=== PATIENT | male | born 1980 | race Caucasian/White ===

== ENCOUNTER 2019-09-12 20:21 | Emergency (ER) | payer MEDICAID, SELFPAY | END 2019-09-12 22:31 | disposition admitted as inpatient to this hospital (09) | LOC: ER 09-15 13:40 | PROVIDERS: Emergency Provider Emergency Medicine | DX: R45.851 Suicidal ideations (principal); Z87.891 Personal history of nicotine dependence | CPT/HCPCS: 12345; 36415; 80053; 80306; 80307; 85025; 99284; 99285 ==

== ENCOUNTER 2019-09-12 20:21 | Inpatient (IN) | payer MEDICAID, SELFPAY ==
[2019-09-12 20:28] VITALS: BP 127/77; PULSE 88; RESP 16; TEMP 36.7; O2SAT 97; BMI 27.1
--- NOTE | 2019-09-12 20:34 | ED_ITS ---
HPI - Psych General: Chief Complaint: Psychiatric Symptoms Stated Complaint: si, hallucinations Time Seen by Provider: 09/12/19 20:29 Source: patient Mode of arrival: ambulatory Limitations: no limitations History of Present Illness: HPI Narrative: 38-year-old male who states he has had suicidal ideations over the last day. He states he is also had auditory hallucinations for 3 days. He states he used to be on Prozac Abilify and has not been taken. He states he has a plan to cut his wrist to kill himself. Patient is here wanting to get help. complaint: suicidal ideation Onset (ago): day(s) Duration: constant Relieving factors: none Exacerbating factors: none Associated symptoms: Reports auditory hallucinations, depression and suicidal ideation Review of Systems Const: Denies: fever, chills, body aches or change in appetite Eyes: Denies: blurry vision or eye discomfort ENMT: Denies: throat pain or dental pain Card: Denies: chest pain Resp: Denies: shortness of breath GI: Denies: abdominal pain, nausea, vomiting or diarrhea : Denies: painful urination Musc: Denies: neck pain or back pain Skin/Breast: Denies: rash Neuro: Denies: headache Psych: Reports: depression, auditory hallucinations and suicidal ideation Magdiel/Lymph: Denies: easy bruising All/Imm: Denies: hives PFSH ED PFSH: Social History Smoking and tobacco status: former smoker Physical Exam Const: COMMON NORMALS: no apparent distress, oriented x3 and healthy appearing HENMT: COMMON NORMALS: normocephalic and head/scalp atraumatic HEAD & SCALP: normocephalic and atraumatic Eye: COMMON NORMALS: PERRL and EOMs intact bilaterally PUPIL: Yes PERRL Neck/C-Spine: COMMON NORMALS: full ROM and supple Chest: COMMONS NORMALS: inspection of chest normal and palpation of chest normal Resp: COMMON NORMALS: normal respiratory effort, no retractions, no use of accessory muscles and clear to auscultation bilaterally AUSCULTATION: clear to auscultation bilaterally Cardio: COMMON NORMALS: regular rate, regular rhythm and no murmurs RATE: regular rate RHYTHM: regular rhythm GI: COMMON NORMALS: normal to inspection, nondistended, normoactive bowel sounds, soft to palpation, non-tender and no masses PALPATION: Yes soft Extremity: COMMON NORMALS: normal to inspection and full ROM Neuro: COMMON NORMALS: oriented x3, moves all extremities and no focal motor deficits Psych: COMMON NORMALS: mental status grossly normal, thought process normal and cooperative ATTITUDE: Yes paranoid THOUGHT PROCESS: normal thought process THOUGHT CONTENT: Yes suicidality Skin: COMMON NORMALS: no rashes or lesions noted and no wounds GENERAL SKIN EXAM: no rashes or lesions noted MDM - Psych MDM Narrative: Medical decision making narrative: Patient presents here with suicidal ideation along with auditory hallucinations. I spoke to Dr. Melgoza and patient is medically cleared will admit to the psychiatric unit. Patient has been stable while here. Lab Data: Labs: Lab Results 09/12/19 09/12/19 09/12/19 Range/Units 20:50 20:58 20:58 WBC 6.5 (4.0-10.0) 10^3/ uL RBC 4.05 L (4.1-5.3) 10^6/u L Hgb 13.2 (11.7-16.6) g/dL Hct 38.6 L (42.0-52.0) % MCV 95.3 H (80-94) fL MCH 32.6 (28.0-34.0) pg MCHC 34.2 (30.0-36.0) g/dL RDW 12.3 (12.1-15.1) % Plt Count 273 (130-400) 10^3/c mm MPV 9.6 (7.4-10.4) fL Neut % (Auto) 36.5 % Lymph % (Auto) 41.7 % [place] % (Auto) 10.5 % Eos % (Auto) 10.3 % Baso % (Auto) 0.8 % Neut # (Auto) 2.4 (1.8-7.7) 10^3/u L Lymph # (Auto) 2.7 (0.8-4.8) 10^3/u L [place] # (Auto) 0.7 (0.2-0.9) 10^3/u L Eos # (Auto) 0.7 (0.0-0.8) 10^3/u L Baso # (Auto) 0.1 (0.0-0.1) 10^3/u L Nucleated RBC % (a uto) 0 % Nucleated RBCs # 0.0 /100WBC Sodium 141 (136-145) mmol/L Potassium 4.3 (3.5-5.1) mmol/L Chloride 104 (98-107) mmol/L Carbon Dioxide 25 (22-29) mmol/L Anion Gap 16.3 (5-19) BUN 15 (6-20) mg/dL Creatinine 0.9 (0.7-1.2) mg/dL GFR Calculation 94.4 (90-130) mL/min Glucose 116 H (65-115) mg/dL Calculated Osmolal ity 289 (285-295) mOsm/k g Calcium 9.7 (8.5-10.5) mg/dL Total Bilirubin 0.2 (0.15-1.2) mg/dL AST 24 (0-40) U/L ALT 30 (0-41) U/L Alkaline Phosphata se 74 (40-130) IU/L Total Protein 7.2 (6.6-8.7) g/dL Albumin 4.1 (3.5-5.2) g/dL Globulin 3.1 (1.3-4.6) g/dL Salicylates < 0.3 L (3-10) mg/dL Urine Opiates Scre en Negative (Negative) ng/mL Acetaminophen < 5.0 L (10-30) ug/mL Ur Barbiturates Sc reen Negative (Negative) ng/mL Ur Phencyclidine S crn Negative (Negative) ng/mL Ur Amphetamines Sc reen Negative (Negative) ng/mL U Benzodiazepines Scrn Negative (Negative) ng/mL Urine Cocaine Scre en Negative (Negative) ng/mL U Marijuana (THC) Screen Negative (Negative) ng/mL Ethyl Alcohol < 10 (0-10) mg/dL Discharge Plan Discharge Patient Disposition: Admitted As Inpatient Clinical Impression: Suicidal ideation, Hallucinations Condition: Stable Coding Level of Care Code ED Clinical Social Work Therapist for Luz Maria Fwcandi Exam Comprehensive
[2019-09-12 21:08] LABS: Basophils # 0.1 10^3/uL (0.0-0.1); Basophils % 0.8 %; Eosinophils # 0.7 10^3/uL (0.0-0.8); Eosinophils % 10.3 %; Hematocrit 38.6 % (42.0-52.0); Hemoglobin 13.2 g/dL (11.7-16.6); Lymphocytes # 2.7 10^3/uL (0.8-4.8); Lymphocytes % 41.7 %; Mean Corpuscular HGB Conc 34.2 g/dL (30.0-36.0); Mean Corpuscular Hemoglobin 32.6 pg (28.0-34.0); Mean Corpuscular Volume 95.3 fL (80-94); Mean Platelet Volume 9.6 fL (7.4-10.4); Monocytes # 0.7 10^3/uL (0.2-0.9); Monocytes % 10.5 %; Neutrophils # 2.4 10^3/uL (1.8-7.7); Neutrophils % 36.5 %; Nucleated Red Blood Cells % 0 %; Platelet Count 273 10^3/cmm (130-400); Red Blood Count 4.05 10^6/uL (4.1-5.3); Red Cell Distribution Width 12.3 % (12.1-15.1); White Blood Count 6.5 10^3/uL (4.0-10.0)
[2019-09-12 21:18] LABS: Amphetamines Screen Urine Negative (Negative); Barbiturates Screen Urine Negative (Negative); Benzodiazepines Screen Urine Negative (Negative); Cocaine Screen Urine Negative (Negative); Opiate Screen Urine Negative (Negative); PCP Screen Urine Negative (Negative); THC Screen Urine Negative (Negative)
[2019-09-12 21:20] LABS: Alanine Aminotransferase 30 U/L (0-41); Albumin Level 4.1 g/dL (3.5-5.2); Alkaline Phosphatase 74 IU/L (40-130); Anion Gap 16.3 (5-19); Aspartate Amino Transferase 24 U/L (0-40); Blood Urea Nitrogen 15 mg/dL (6-20); Calcium 9.7 mg/dL (8.5-10.5); Carbon Dioxide 25 mmol/L (22-29); Chloride 104 mmol/L (98-107); Creatinine Clr Calc Pharmacy 130.4076; Globulin 3.1 g/dL (1.3-4.6); Glomerular Filtration Rate 94.4 mL/min (90-130); Glucose 116 mg/dL (65-115); Osmolality Calculated 289 mOsm/kg (285-295); Potassium 4.3 mmol/L (3.5-5.1); Sodium 141 mmol/L (136-145); Total Bilirubin 0.2 mg/dL (0.15-1.2); Total Protein 7.2 g/dL (6.6-8.7)
[2019-09-12 21:28] LABS: Acetaminophen < 5.0 ug/mL (10-30); Alcohol Level < 10 mg/dL (0-10); Salicylate < 0.3 mg/dL (3-10)
[2019-09-12 21:37] VITALS: BP 105/67; PULSE 76; RESP 16; O2SAT 95
[2019-09-12 22:15] VITALS: BP 132/69; PULSE 69; RESP 16; O2SAT 96
[2019-09-12 22:46] VITALS: BP 104/66; PULSE 75; RESP 18; TEMP 36.4; O2SAT 98
[2019-09-13 06:00] VITALS: BP 115/72; PULSE 70; RESP 17; TEMP 36.7; O2SAT 95
[2019-09-13 14:00] VITALS: BP 112/65; PULSE 73; RESP 20; TEMP 36.8; O2SAT 95
[2019-09-13] MEDS: paliperidone ER 3 mg Tablet PO (15:56)
--- NOTE | 2019-09-13 16:04 | P.HP_ITS ---
Providers/Chief Complaint Admitting Physician: Genaro Melgoza MD Chief Complaint: si, hallucinations HPI NPU History of Present Illness Chief complaint: I am having problems with hallucinations. I did really well when I was on medication. I want to be on the shot. History of present illness:Darin Zhang is a 38 year old male who presented to the emergency room requesting admission so that he could be restarted on medications that had previously been effective. 2 months ago, he went into a residential program that was [facility] and was told that he could stop his pharmaceuticals and rely solely on the strength of his face. He now states that the medications are necessary and effective. He had been taking Abilify and Prozac. However, he reports that he was on inVega for 3 months last year and the inVega seem to help better than the combination of those 2 medications as. He reports that historically, his diagnosis was schizoaffective disorder?bipolar type. He is not a very good historian regarding progression of those symptoms over time. He has been hospitalized over 40 times with the first being at 12 years of age. However he is very clear that he wants to be on injectable medic ation because he cannot remember to take his pills. He is also very clear that the in Choi was the most effective medication in reducing his auditory hallucinations. He acknowledges that risperidone is on his allergy list and says that with both risperidone and Haldol he had dystonia. However he is adamant that he never had a similar side effect with the Invega. Currently he is having auditory hallucinations but they are not of a command nature. They impaired his ability to think clearly and reduce his focus of attention. He denies suicidal or homicidal ideation. He reports no other symptoms and has no other requests. Laboratory Tests 09/12/19 09/12/19 20:50 20:58 Urine Opiates Screen Negative Ur Barbiturates Screen Negative Ur Phencyclidine Scrn Negative Ur Amphetamines Screen Negative U Benzodiazepines Scrn Negative Urine Cocaine Screen Negative U Marijuana (THC) Screen Negative Ethyl Alcohol < 10 ER physician note:HPI Narrative: 38-year-old male who states he has had suicidal ideations over the last day. He states he is also had auditory hallucinations for 3 days. He states he used to be on Prozac Abilify and has not been taken. He states he has a plan to cut his wrist to kill himself. Patient is here wanting to get help. Mental health history: Social history: The patient grew up in [place]. He currently has a fianc? in [place]. However she is not able to come and get him here in the surgery. He dropped out of school in the 10th grade. However he did get his GED. He is originally from [facility]. 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 His father currently lives in [place]. He has 2 brothers in [place]. He has never been and has no children. Legal history: He is currently on parole for resisting arrest, assaulting an officer, felonious restraint, possession of a controlled substance, and resisting/interfering with arrest for a felony. These all occurred during one incident in August 2015. He received a 4-year sentence in the [employer]. It is unclear how long he served. Past medical history: Allergies: Risperidone and haloperidol both cause dystonic reactions by patient report. These are not confirmed. Medications: None Medical: The patient has no chronic medical problems. However in the week prior to admission, he did have a deep puncture wound from a rusted barbed wire fence. There are no signs of infection. However he cannot remember his last tetanus shot. Meds NPU Home Medications Medication Instructions Recorded Confirmed Last Taken Type No Known Home Medications 09/12/19 09/12/19 Unknown History Allergies Allergy/AdvReac Type Severity Reaction Status Date / Time haloperidol [From Haldol] Allergy ADR-Seizure Verified 09/12/19 20:34 risperidone [From Risperdal] Allergy ADR-Seizure Verified 09/12/19 20:35 [facility] NPU PFS: Social History Smoking and tobacco status: former smoker Mental Status Exam MSE Comments: Mental Status Exam: The patient is an alert interpersonally engaged male appearing approximately his stated age. Appearance: hygiene is fair; no gross neurological deficits., gait is unremarkable; AIMS=0; he has good muscle tone and mass and appears athletic. Speech: Speech is of normal rate and rhythm and easily understood. Vocabulary is less than expected for age. Thought processes: Thought processes are abstract. Judgment is adequate for safety. Associations: intact Psychotic processes: There is no indication of guarding or paranoia. There is no attention to the internal stimuli. Auditory hallucinations are reported. They are not of a command nature. However they impair his ability to think clearly. visual hallucinations are denied. Judgment: Insight is fair. Problem solving skills are adequate for safety. Orientation: The patient is oriented to person, place time and situation. Memory: no deficits noted in immediate, intermediate, or remote spheres. Attention: The patient is alert and interpersonally engaged. Language: Verbalizations are coherent. Fund of knowledge: Fund of knowledge is poor Affect/Mood: Affect is consistent with a euthymic mood. He denied suicidal ideation Affective range flat Psychosis: perception unimpaired except through cognitive distortion and cognitive deficit; reality testing intact. Diagnoses: Schizoaffective disorder?acute, psychotic Assessment: Treatment plan: Due to the psychiatric conditions and treatment listed in the Assessment and Plan - the patient requires continued hospitalization. Will provide a safe and therapeutic environment for patient.. Will continue inpatient treatment to allow for medication adjustment and monitoring. Will continue q15 min safety checks. Patient is in agreement that restarting in Choi. He is adamant that it is well- tolerated. We are going to initiate in Choi 3 mg today and give him a tetanus shot. We will likely initiate IM in Choi tomorrow morning. Monitor patient's mood, sleep, appetite, and behavior closely. Encourage patient to participate in individual and group therapeutic sessions on the perkins. Estimated length of stay 5 days Vitals/I&O/Wt Last Vital Signs Temp 98.2 F 09/13/19 14:00 Pulse 73 09/13/19 14:00 Resp 20 H 09/13/19 14:00 BP 112/65 09/13/19 14:00 Pulse Ox 95 09/13/19 14:00 Weight last 48 hrs Weight 90.718 kg Data NPU : 09/12/19 20:58 09/12/19 20:58 A&P Additional A&P Information Diagnoses: Schizoaffective disorder?acute, psychotic Assessment: Treatment plan: Due to the psychiatric conditions and treatment listed in the Assessment and Plan - the patient requires continued hospitalization. Will provide a safe and therapeutic environment for patient.. Will continue inpatient treatment to allow for medication adjustment and monitoring. Will continue q15 min safety checks. Patient is in agreement that restarting in Choi. He is adamant that it is well- tolerated. We are going to initiate in Choi 3 mg today and give him a tetanus shot. We will likely initiate IM in Choi tomorrow morning. Monitor patient's mood, sleep, appetite, and behavior closely. Encourage patient to participate in individual and group therapeutic sessions on the perkins. Estimated length of stay 5 days Involuntary Hold Information 96 Hour Hold: 96 Hour Involuntary Admission: Yes 96 Hour Hold Ending Date: 09/17/19 96 Hour Hold Ending Time: 12:01 Attestations NPU Medical Necessity Statement*: Patient will remain in the hospital another 4-5 nights to assess medication efficacy and tolerability. Coding Level of Care Code Acute Barrel Rifler Hook for Luz Maria Castillo
--- NOTE | 2019-09-13 20:58 | PC.NURSE ---
pt offered med for sleep, but pt denied.
[2019-09-13 22:00] VITALS: BP 130/78; PULSE 75; RESP 18; TEMP 36.9; O2SAT 97
[2019-09-14 06:00] VITALS: BP 106/67; PULSE 68; RESP 16; TEMP 37; O2SAT 96
[2019-09-14] MEDS: paliperidone ER 3 mg Tablet PO (08:59)
[2019-09-14] MEDS: paliperidone palmitate 234 mg Syringe IM (12:01)
[2019-09-14 14:00] VITALS: BP 103/64; PULSE 71; RESP 18; TEMP 36.7; O2SAT 95
[2019-09-14] MEDS: tetanus-diphtheria tox (adult) 0.5 mL SDV IM (17:18)
[2019-09-14 22:00] VITALS: BP 109/73; PULSE 84; RESP 17; TEMP 36.9; O2SAT 94
[2019-09-15 05:57] VITALS: BP 120/82; PULSE 69; RESP 17; TEMP 36.7; O2SAT 98
[2019-09-15] MEDS: paliperidone ER 3 mg Tablet PO (08:56)
--- NOTE | 2019-09-15 09:26 | PM.NPN ---
Subjective NPU Subjective: Interval history: Patient reports that he has tolerated his oral Invega and is not having any problems with side effects. There is no stiffness or cogwheel rigidity. Mental Status Exam MSE Comments: Mental Status Exam: The patient is an alert interpersonally engaged male appearing approximately his stated age. Appearance: hygiene is acceptable; no gross neurological deficits., gait is unremarkable; AIMS=0; he has good muscle tone and mass and appears athletic. No cogwheel rigidity Speech: Speech is of normal rate and rhythm and easily understood. Vocabulary is less than expected for age. Thought processes: Thought processes are abstract. Judgment is adequate for safety. Associations: intact Psychotic processes: There is no indication of guarding or paranoia. There is no attention to the internal stimuli. Auditory hallucinations are reported. They are not of a command nature. However they impair his ability to think clearly. visual hallucinations are denied. Judgment: Insight is fair. Problem solving skills are adequate for safety. Orientation: The patient is oriented to person, place time and situation. Memory: no deficits noted in immediate, intermediate, or remote spheres. Attention: The patient is alert and interpersonally engaged. Language: Verbalizations are coherent. Fund of knowledge: Fund of knowledge is poor Affect/Mood: Affect is consistent with a euthymic mood. He denied suicidal ideation Affective range flat Psychosis: perception unimpaired except through cognitive distortion and cognitive deficit; reality testing intact. Vitals/I&O/Wt Last Vital Signs Temp 98.1 F 09/15/19 05:57 Pulse 69 09/15/19 05:57 Resp 17 09/15/19 05:57 BP 120/82 09/15/19 05:57 Pulse Ox 98 09/15/19 05:57 Data NPU : 09/12/19 20:58 09/12/19 20:58 A&P Additional A&P Information Diagnoses: Schizoaffective disorder?acute, psychotic Assessment: Treatment plan: Due to the psychiatric conditions and treatment listed in the Assessment and Plan - the patient requires continued hospitalization. Will provide a safe and therapeutic environment for patient.. Will continue inpatient treatment to allow for medication adjustment and monitoring. Will continue q15 min safety checks. Patient is in agreement that restarting inVega. He is adamant that it is well-tolerated. We are going to initiate in Choi 3 mg today and give him a tetanus shot. We will likely initiate IM inVega tomorrow morning. Hospital day #2: Invega initiated and well-tolerated. Plan: Invega Sustenna 234 milligrams IM today Monitor patient's mood, sleep, appetite, and behavior closely. Encourage patient to participate in individual and group therapeutic sessions on the perkins. Estimated length of stay 2 days Involuntary Hold Information 96 Hour Hold: 96 Hour Involuntary Admission: Yes 96 Hour Hold Ending Date: 09/17/19 96 Hour Hold Ending Time: 12:01 Attestations NPU Medical Necessity Statement*: Patient to remain in the hospital 1 more day to assess efficacy and tolerability of medication. Coding Level of Care Code Acute Press Technician for Luz Maria Castillo
--- NOTE | 2019-09-15 09:29 | P.DS_ITS ---
Diagnoses at Discharge Discharge Diagnosis (1) Schizophrenia, acute undifferentiated: Status: Acute Problem details: Patient continues to struggle with auditory hallucinations though there is no command nature to the hallucinations and his reality testing remains intact. Reason for Visit Reason for Visit: Reason For Visit: si, hallucinations Brief History: Chief complaint: I am having problems with hallucinations. I did really well when I was on medication. I want to be on the shot. History of present illness:Darin Zhang is a 38 year old male who presented to the emergency room requesting admission so that he could be restarted on medications that had previously been effective. 2 months ago, he went into a residential program that was [facility] and was told that he could stop his pharmaceuticals and rely solely on the strength of his face. He now states that the medications are necessary and effective. He had been taking Abilify and Prozac. However, he reports that he was on inVega for 3 months last year and the inVega seem to help better than the combination of those 2 medications as. He reports that historically, his diagnosis was schizoaffective disorder?bipolar type. He is not a very good historian regarding progression of those symptoms over time. He has been hospitalized over 40 times with the first being at 12 years of age. However he is very clear that he wants to be on injectable medication because he cannot remember to take his pills. He is also very clear that the in Choi was the most effective medication in reducing his auditory hallucinations. He acknowledges that risperidone is on his allergy list and says that with both risperidone and Haldol he had dystonia. However he is adamant that he never had a similar side effect with the Invega. Currently he is having auditory hallucinations but they are not of a command nature. They impaired his ability to think clearly and reduce his focus of attention. He denies suicidal or homicidal ideation. He reports no other symptoms and has no other requests. Hospital Course Discharge Summary The patient was admitted to the adult psychiatric unit and entered into the form of individual and group therapies as part of the unit protocol. They were provided 24-hour access to medication supervision and therapeutic activities by trained psychiatric nursing. The patient was educated with regard to potential benefits and side effects of new medications. We agreed to a contingency plan of discontinuation of medication in the event of intolerable side effects. He was provided an initial dose of in Choi to assess his tolerability of the medication. He adamantly stated that he has taken this medication in the past without side effects. He was given his first injection of Invega Sustenna. It was well-tolerated. Discharge planning found that that the most acceptable destination was to return to the treatment program from which he came. Involuntary Hold Information 96 Hour Hold: 96 Hour Involuntary Admission: Yes 96 Hour Hold Ending Date: 09/17/19 96 Hour Hold Ending Time: 12:01 Mental Status Exam MSE Comments: Discharge Mental Status Exam: Appearance: hygiene is good; no gross neurological deficits., gait is unremarkable; AIMS=0 Speech: Speech is of normal rate and rhythm and easily understood. Thought processes: Thought processes are abstract. Judgment is adequate for safety. Associations: intact Psychotic processes: There is no indication of guarding or paranoia. There is no attention to the internal stimuli. visual hallucinations are denied. Auditory hallucinations continue to be present but in reduced severity. There is no command nature and his reality testing is intact. Judgment: Insight is fair. Problem solving skills are adequate for safety. Orientation: The patient is oriented to person, place time and situation. Memory: no deficits noted in immediate, intermediate, or remote spheres. Attention: The patient is alert and interpersonally engaged. Language: Verbalizations are coherent. Fund of knowledge: Fund of knowledge is poor but adequate. Affect/Mood: Affect is consistent with a euthymic mood. denied suicidal ideation Affective range is reduced. Psychosis: perception unimpaired except through cognitive distortion; reality testing intact. NOTE!!! I am unable to find someplace in the discharge plan section to explain the discharge actions by narrative. The patient was discharged with a prescription for Invega Sustenna 156 mg IM. He is to receive his next injection in 7 days and then every 30 days +/- 3 days going forward. He was given a written prescription for this. Discharge Data Vitals: Last Vital Signs Temp 98.1 F 09/15/19 05:57 Pulse 69 09/15/19 05:57 Resp 17 09/15/19 05:57 BP 120/82 09/15/19 05:57 Pulse Ox 98 09/15/19 05:57 Discharge Plan Discharge Patient Disposition: Home, Self-Care Condition: Stable Prescriptions: New paliperidone 3 mg Tablet Extended Release 24hr 3 mg PO DAILY Qty: 10 RF: 1 Discharge Orders: Discharge Order (Routine); Ordered 09/15/19 Ordered By: Yoel Loja Referrals: [facility] [Other] - 09/21/19 9:30 am (you need to have your medicine picked up before this appointment at [facility] and bring it to the primary care appointment to get it administered. You will still need to go to [facility] in order to get future psychiatric medication management. Be sure to get your injection on September 20 and then again 30 days later. ) [facility] [Other] - 1-3 days (you still need to go to [facility] ([facility])as so on as possible in order to get referral for psychiatric medication management. This is where you will go for your psychiatric care after you get established. You will be able to get appointments for injectable here in the future. If for some reason you are unable to get injectable next FridaySeptember 20 at the [facility], you do have the option to bring your medicine with you to [facility] ([facility]) provider for walk- in clinic. Ask for staff to administer it then. ) Discharge Diet: Usual diet Discharge Activity: Increase activity as tolerated Patient Instructions: Paliperidone (By mouth), Paliperidone (Injection) Discharge Attestations NPU Time Spent in Discharge Care*: greater than 30 min Coding Level of Care Code Acute Manager Revenue for Luz Maria Castillo Diagnoses Schizophrenia, acute undifferentiated F20.3
[2019-09-15 09:32] VITALS: BP 120/82; PULSE 69; RESP 17; TEMP 36.7; O2SAT 98
== END 2019-09-15 13:44 | disposition home or self-care (01) | DRG 885 ==
LOC: ER 20:43 → NP 22:16
PROVIDERS: Emergency Medicine; Admitting Provider Psychiatry & Neurology Psychiatry; Visit Provider Psychiatry & Neurology Psychiatry
DX: F23 Brief psychotic disorder (principal); R45.851 Suicidal ideations; Z87.891 Personal history of nicotine dependence
CPT/HCPCS: 12345; 36415; 80053; 80306; 80307; 85025; 90471; 90714; 96372; 99284

== ENCOUNTER → 2019-09-16 10:08 | Outpatient (BNVA) | payer MEDICAID, SELFPAY | PROVIDERS: Visit Provider Counselor Professional | DX: F25.0 Schizoaffective disorder, bipolar type (principal) | CPT/HCPCS: 90791 ==

== ENCOUNTER → 2019-10-21 14:00 | Outpatient (BNVA) | payer MEDICAID, SELFPAY | PROVIDERS: Visit Provider Counselor Professional | DX: F25.0 Schizoaffective disorder, bipolar type (principal) | CPT/HCPCS: 90832 ==

== ENCOUNTER 2019-10-22 13:52 | Emergency (ER) | payer MEDICAID, SELFPAY ==
[2019-10-22 14:12] VITALS: BP 110/68; PULSE 113; RESP 18; TEMP 36.6; O2SAT 97; BMI 29.1
== END 2019-10-22 15:46 | disposition left against medical advice (07) ==
LOC: ER 15:30
PROVIDERS: Emergency Provider Family Medicine
DX: Z53.21 Procedure and treatment not carried out due to patient leaving prior to being seen by health care provider (principal)
CPT/HCPCS: 99281

== ENCOUNTER 2019-10-24 09:09 | Inpatient (IN) | payer MEDICAID, SELFPAY ==
[2019-10-24 09:12] VITALS: BP 120/76; PULSE 91; RESP 18; TEMP 36.8; O2SAT 98; BMI 29.1
--- NOTE | 2019-10-24 09:22 | ECG_ITS ---
[facility] ED Test Date: 2019-10-24 Pat Name: Darin Zhang Department: Room: Gender: Male Guard Supervisor: : 1980 Requested By: Messi Steinberg Order Number: [id number] [place] MD: Janet Shah M.D. Measurements Intervals [place] Rate: 74 P: 56 VT: 148 QRS: 60 QRSD: 121 T: 29 QT: 400 QTc: 445 Interpretive Statements SINUS RHYTHM PROBABLE LATERAL MYOCARDIAL INFARCTION, PROBABLY OLD WARNING: DATA QUALITY MAY AFFECT INTERPRETATION INTERPRETATION BASED ON A DEFAULT AGE OF 40 YEARS No previous ECG available for comparison Electronically Signed On 10-24-2019 13:34:07 CDT by Janet Shah M.D. [email or web address]
--- NOTE | 2019-10-24 09:30 | W.ED.PSYCH ---
HPI - Psych General: Chief Complaint: Psychiatric Symptoms Stated Complaint: SI Time Seen by Provider: 10/24/19 09:12 History of Present Illness: HPI Narrative: Patient states that he began feeling suicidal yesterday. She does not know the reason why. Patient states he has schizoaffective disorder and it is been at least one month since his last Invega injection. complaint: suicidal ideation and feels depressed Onset (ago): day(s) Duration: constant and getting worse History of same: Yes Relieving factors: none Exacerbating factors: none Context: not taking psychiatric medications Associated psychiatric symptoms: depression and suicidal ideation Associated symptoms: Reports depression and suicidal ideation Treatments prior to arrival: none If self harm: admits thoughts of self harm Review of Systems General: Reports: 10 or more systems reviewed and unremarkable except in HPI and below Psych: Reports: depression and suicidal ideation PFSH ED PFSH: Social History Smoking and tobacco status: current every day smoker Current gender identity: Male Physical Exam Const: COMMON NORMALS: no acute distress, average body habitus, alert and well nourished EXAM LIMITATIONS: altered mental status GENERAL APPEARANCE: disheveled HENMT: COMMON NORMALS: normocephalic, atraumatic, hearing grossly normal bilaterally, external ears normal, EAC's normal, TM's normal bilaterally, Normal external nose present, Normal nasal mucous membranes and turbinates present, moist oral mucous membranes, oropharynx normal, dentition normal and gingiva normal HEAD & SCALP: normocephalic and atraumatic NOSE: Normal external nose present and Normal nasal mucous membranes and turbinates present EXTERNAL EAR: Yes external ears normal EXTERNAL AUDITORY CANAL: EAC's normal TYMPANIC MEMBRANE: TM's normal bilaterally Eye: COMMON NORMALS: Equal, round and reactive pupils present, EOMs intact bilaterally, conjunctivae normal, no scleral icterus, no papilledema, normal visual tadeo by confrontation and fundi normal bilaterally CONJUNCTIVA: Yes conjunctivae normal PUPIL: Yes Equal, round and reactive pupils present DIRECT OPHTHALMOSCOPY: Yes no papilledema and Yes fundi normal bilaterally Neck/C-Spine: COMMON NORMALS: full ROM, no lymphadenopathy, supple, no meningeal signs, no JVD, Thyroid normal and No carotid bruits THYROID: Thyroid normal Chest: COMMONS NORMALS: normal inspection of the chest and normal palpation of entire chest wall Resp: COMMON NORMALS: normal respiratory effort, No retractions, No use of accessory muscles, clear to auscultation bilaterally and percussion normal AUSCULTATION: clear to auscultation bilaterally PERCUSSION: percussion normal Cardio: COMMON NORMALS: no JVD, regular rate, regular rhythm, S1 normal heart sound present, S2 normal heart sound present, No gallops present (Cardio), No clicks present (Cardio), No murmurs present (Cardio), No rub (Cardio) and Peripheral pulses 2+ throughout RATE: regular rate RHYTHM: regular rhythm HEART SOUNDS: S1 normal heart sound present and S2 normal heart sound present PERIPHERAL PULSES: Peripheral pulses 2+ throughout GI: COMMON NORMALS: Normal to inspection, nondistended, normoactive bowel sounds present, Soft to palpation, non-tender, No hepatosplenomegaly present, no masses and no bruits PALPATION: Yes Soft to palpation and Yes No hepatosplenomegaly present Back/Pelvis: COMMON NORMALS: thoracic and lumbar spine normal to inspection, no thoracic nor lumbar tenderness, thoraco-lumbar ROM normal and straight leg raise negative bilaterally Extremity: COMMON NORMALS: normal to inspection, full ROM, capillary refill normal, no joint enlargement, no clubbing, cyanosis or edema, no calf tenderness and no pedal edema Neuro: SENSORIUM/ORIENTATION: Yes alert and Yes somnolent MENINGEAL SIGNS: Yes no meningeal signs Skin: COMMON NORMALS: no rashes or lesions noted, no wounds, no jaundice and no mottling GENERAL SKIN EXAM: no rashes or lesions noted MDM - Psych Lab Data: Labs: Lab Results 10/24/19 10/24/19 10/24/19 Range/Units 09:29 09:35 09:35 WBC 8.5 (4.0-10.0) 10^3/ uL RBC 4.23 (4.1-5.3) 10^6/u L Hgb 13.3 (11.7-16.6) g/dL Hct 40.1 L (42.0-52.0) % MCV 94.8 H (80-94) fL MCH 31.4 (28.0-34.0) pg MCHC 33.2 (30.0-36.0) g/dL RDW 11.8 L (12.1-15.1) % Plt Count 291 (130-400) 10^3/c mm MPV 9.9 (7.4-10.4) fL Neut % (Auto) 62.8 % Lymph % (Auto) 21.9 % [place] % (Auto) 8.9 % Eos % (Auto) 5.2 % Baso % (Auto) 0.8 % Neut # (Auto) 5.3 (1.8-7.7) 10^3/u L Lymph # (Auto) 1.9 (0.8-4.8) 10^3/u L [place] # (Auto) 0.8 (0.2-0.9) 10^3/u L Eos # (Auto) 0.4 (0.0-0.8) 10^3/u L Baso # (Auto) 0.1 (0.0-0.1) 10^3/u L Nucleated RBC % (a uto) 0 % Nucleated RBCs # 0.0 /100WBC Sodium 140 (136-145) mmol/L Potassium 4.0 (3.5-5.1) mmol/L Chloride 103 (98-107) mmol/L Carbon Dioxide 26 (22-29) mmol/L Anion Gap 15.0 (5-19) BUN 10 (6-20) mg/dL Creatinine 0.7 (0.7-1.2) mg/dL GFR Calculation 125.5 (90-130) mL/min Glucose 108 (65-115) mg/dL Calculated Osmolal ity 287 (285-295) mOsm/k g Calcium 9.1 (8.5-10.5) mg/dL Total Bilirubin 0.2 (0.15-1.2) mg/dL AST 19 (0-40) U/L ALT 24 (0-41) U/L Alkaline Phosphata se 70 (40-130) IU/L Total Protein 6.7 (6.6-8.7) g/dL Albumin 4.1 (3.5-5.2) g/dL Globulin 2.6 (1.3-4.6) g/dL TSH 1.30 (0.27-4.20) uIU/ mL Salicylates < 0.3 L (3-10) mg/dL Urine Opiates Scre en Negative (Negative) ng/mL Acetaminophen < 5.0 L (10-30) ug/mL Ur Barbiturates Sc reen Negative (Negative) ng/mL Ur Phencyclidine S crn Negative (Negative) ng/mL Ur Amphetamines Sc reen Positive H (Negative) ng/mL U Benzodiazepines Scrn Negative (Negative) ng/mL Urine Cocaine Scre en Negative (Negative) ng/mL U Marijuana (THC) Screen Positive H (Negative) ng/mL Ethyl Alcohol < 10 (0-10) mg/dL Discharge Plan Discharge Patient Disposition: Admitted As Inpatient Clinical Impression: Suicidal ideation Depression Qualifiers: Depression Type: major depressive disorder Major depression recurrence: recurrent Active/Remission status: currently active Major depression episode severity: severe Psychotic features: with psychotic features Qualified Code(s): F33.3 - Major depressive disorder, recurrent, severe with psychotic symptoms Schizoaffective disorder Qualifiers: Schizoaffective disorder type: unspecified Qualified Code(s): F25.9 - Schizoaffective disorder, unspecified Condition: Fair Coding Level of Care Code ED Resident Programs Assistant for [facility] Exam Comprehensive
[2019-10-24 09:46] LABS: Basophils # 0.1 10^3/uL (0.0-0.1); Basophils % 0.8 %; Eosinophils # 0.4 10^3/uL (0.0-0.8); Eosinophils % 5.2 %; Hematocrit 40.1 % (42.0-52.0); Hemoglobin 13.3 g/dL (11.7-16.6); Lymphocytes # 1.9 10^3/uL (0.8-4.8); Lymphocytes % 21.9 %; Mean Corpuscular HGB Conc 33.2 g/dL (30.0-36.0); Mean Corpuscular Hemoglobin 31.4 pg (28.0-34.0); Mean Corpuscular Volume 94.8 fL (80-94); Mean Platelet Volume 9.9 fL (7.4-10.4); Monocytes # 0.8 10^3/uL (0.2-0.9); Monocytes % 8.9 %; Neutrophils # 5.3 10^3/uL (1.8-7.7); Neutrophils % 62.8 %; Nucleated Red Blood Cells % 0 %; Platelet Count 291 10^3/cmm (130-400); Red Blood Count 4.23 10^6/uL (4.1-5.3); Red Cell Distribution Width 11.8 % (12.1-15.1); White Blood Count 8.5 10^3/uL (4.0-10.0)
[2019-10-24 09:51] LABS: Amphetamines Screen Urine Positive (Negative); Barbiturates Screen Urine Negative (Negative); Benzodiazepines Screen Urine Negative (Negative); Cocaine Screen Urine Negative (Negative); Opiate Screen Urine Negative (Negative); PCP Screen Urine Negative (Negative); THC Screen Urine Positive (Negative)
[2019-10-24 10:10] LABS: Alanine Aminotransferase 24 U/L (0-41); Albumin Level 4.1 g/dL (3.5-5.2); Alkaline Phosphatase 70 IU/L (40-130); Aspartate Amino Transferase 19 U/L (0-40); Blood Urea Nitrogen 10 mg/dL (6-20); Calcium 9.1 mg/dL (8.5-10.5); Carbon Dioxide 26 mmol/L (22-29); Chloride 103 mmol/L (98-107); Globulin 2.6 g/dL (1.3-4.6); Glomerular Filtration Rate 125.5 mL/min (90-130); Glucose 108 mg/dL (65-115); Osmolality Calculated 287 mOsm/kg (285-295); Sodium 140 mmol/L (136-145); Total Bilirubin 0.2 mg/dL (0.15-1.2); Total Protein 6.7 g/dL (6.6-8.7)
[2019-10-24 10:21] LABS: Acetaminophen < 5.0 ug/mL (10-30); Alcohol Level < 10 mg/dL (0-10); Salicylate < 0.3 mg/dL (3-10)
[2019-10-24 11:51] VITALS: BP 130/77; PULSE 84; RESP 18; TEMP 36.7; O2SAT 99
[2019-10-24 12:15] VITALS: BP 113/66; PULSE 84; O2SAT 99
[2019-10-24 22:00] VITALS: BP 109/64; PULSE 78; RESP 14; TEMP 36.9; O2SAT 97
--- NOTE | 2019-10-24 23:03 | PC.NURSE ---
Pt was offered PRN meds for sleep and anxiety, but refused.
[2019-10-25 06:00] VITALS: BP 111/74; PULSE 74; RESP 15; TEMP 36.8; O2SAT 96
--- NOTE | 2019-10-25 08:55 | PM.NHP ---
Providers/Chief Complaint Admitting Physician: Genaro Melgoza MD Chief Complaint: SI HPI NPU History of Present Illness Darin Zhang is a 39 year old male who presents today reporting that he was doing really well after his discharge approximately five weeks ago. He has a long history of inpatient hospitalizations and had been admitted, got placed on his medication, including Invega Sustenna injection. Unfortunately, he missed his appointment earlier this month that would have gotten him his next injection, so he did not get the injection. He was at a CDL school and doing quite well, but each day with the absence of the medication in his system, he started acting more strangely which led to them inquiring about whether he had mental health issues, and he had to reveal that he missed his injection. They recommended he come here and now he is focused on the possibility of whether or not he will get to go back, as long as he gets his injection managed. We reviewed the note from his last admission, and he verified that there have been no substantive changes and it represents his history appropriately. An excerpt of that has been included below. We agreed to give him his injection and then work with him along with the social work team to see what options are available of getting him back into school, as that was going to be a wonderful opportunity for him if he can complete it. Per his 09/13/2019 [facility] eval: Chief complaint: I am having problems with hallucinations. I did really well when I was on medication. I want to be on the shot. History of present illness:Darin Zhang is a 38 year old male who presented to the emergency room requesting admission so that he could be restarted on medications that had previously been effective. 2 months ago, he went into a residential program that was [facility]-based and was told that he could stop his pharmaceuticals and rely solely on the strength of his face. He now states that the medications are necessary and effective. He had been taking Abilify and Prozac. However, he reports that he was on inVega for 3 months last year and the inVega seem to help better than the combination of those 2 medications as. He reports that historically, his diagnosis was schizoaffective disorder?bipolar type. He is not a very good historian regarding progression of those symptoms over time. He has been hospitalized over 40 times with the first being at 12 years of age. However he is very clear that he wants to be on injectable medication because he cannot remember to take his pills. He is also very clear that the in Choi was the most effective medication in reducing his auditory hallucinations. He acknowledges that risperidone is on his allergy list and says that with both risperidone and Haldol he had dystonia. However he is adamant that he never had a similar side effect with the Invega. Currently he is having auditory hallucinations but they are not of a command nature. They impaired his ability to think clearly and reduce his focus of attention. He denies suicidal or homicidal ideation. He reports no other symptoms and has no other requests. Laboratory Tests 09/12/19 09/12/19 20:50 20:58 Urine Opiates Screen Negative Ur Barbiturates Screen Negative Ur Phencyclidine Scrn Negative Ur Amphetamines Screen Negative U Benzodiazepines Scrn Negative Urine Cocaine Screen Negative U Marijuana (THC) Screen Negative Ethyl Alcohol < 10 ER physician note:HPI Narrative: 38-year-old male who states he has had suicidal ideations over the last day. He states he is also had auditory hallucinations for 3 days. He states he used to be on Prozac Abilify and has not been taken. He states he has a plan to cut his wrist to kill himself. Patient is here wanting to get help. Mental health history: Social history: The patient grew up in [place]. He currently has a fianc? in [place]. However she is not able to come and get him here in the surgery. He dropped out of school in the 10th grade. However he did get his GED. He is originally from [facility]. 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 His father currently lives in [place]. He has 2 brothers in [place]. He has never been and has no children. Legal history: He is currently on parole for resisting arrest, assaulting an officer, felonious restraint, possession of a controlled substance, and resisting/interfering with arrest for a felony. These all occurred during one incident in August 2015. He received a 4-year sentence in the [employer]. It is unclear how long he served. Past medical history: Allergies: Risperidone and haloperidol both cause dystonic reactions by patient report. These are not confirmed. Medications: None Medical: The patient has no chronic medical problems. However in the week prior to admission, he did have a deep puncture wound from a rusted barbed wire fence. There are no signs of infection. However he cannot remember his last tetanus shot. Meds NPU Home Medications Medication Instructions Recorded Confirmed Last Taken Type No Known Home Medications 10/24/19 10/24/19 Unknown History paliperidone palmitate [Invega 156 mg IM Q30D #1 ml 10/26/19 Unknown Rx Sustenna] trazodone 50 mg PO BEDTIME PRN 30 Days #30 10/26/19 Unknown Rx tab Allergies Allergy/AdvReac Type Severity Reaction Status Date / Time haloperidol [From Haldol] Allergy ADR-Seizure Verified 10/24/19 09:52 risperidone [From Risperdal] Allergy ADR-Seizure Verified 10/24/19 09:52 PFSH NPU PFSH: Social History Smoking and tobacco status: current every day smoker Current gender identity: Male Mental Status Exam MSE Comments: This is a well-nourished, well-developed, white male, with adequate dress, grooming, and eye contact. No abnormal movements except for mild psychomotor retardation. Cooperative with exam in no acute distress. Speech was decreased rate and volume. Mood described as ?depressed about my job?; affect congruent. He was endorsing paranoia. Thought process, organized. Thought content: patient denied any suicidal or homicidal ideation, there were no delusions reported or noted, patient denied any auditory or visual hallucinations. Attention and concentration are intact. Memory appeared reliable. He is alert and oriented times three. Insight and judgment are fair. Vitals/I&O/Wt Last Vital Signs Temp 98.2 F 10/25/19 14:00 Pulse 76 10/25/19 14:00 Resp 20 H 10/25/19 14:00 BP 108/66 10/25/19 14:00 Pulse Ox 95 10/25/19 14:00 Weight last 48 hrs Weight 97.522 kg Data NPU : 10/24/19 09:35 10/24/19 09:35 A&P Assessment and plan (1) Depression: Status: Acute Qualifiers: Active/Remission status: currently active Depression Type: major depressive disorder Major depression episode severity: severe Major depression recurrence: recurrent Psychotic features: with psychotic features Qualified Code(s): F33.3 - Major depressive disorder, recurrent, severe with psychotic symptoms (2) Schizoaffective disorder: Status: Acute Qualifiers: Schizoaffective disorder type: unspecified Qualified Code(s): F25.9 - Schizoaffective disorder, unspecified (3) Suicidal ideation: Status: Acute (4) Schizophrenia, acute undifferentiated: Status: Acute Additional A&P Information This is a 39 year old, white male, with schizophrenia, who presented off of his medication and hopeful of getting his injection restarted, and hopefully saving his job. Continue current medication including giving injection when available. Encourage individual, group, and milieu therapy. Q 15-minute checks for safety. Involuntary Hold Information 96 Hour Hold: 96 Hour Involuntary Admission: No 96 Hour Hold Ending Date: 09/17/19 96 Hour Hold Ending Time: 12:01 Attestations NPU Medical Necessity Statement*: Inpatient hospitalization is medically necessary and the clinically appropriate intervention at this time. He will be in the hospital for over two midnights. We will administer medication and monitor for any need for changes. Likely length of stay two to three days Coding Level of Care Code Acute Supervisor Aircraft Maintenance for [facility] Fwd Diagnoses Depression F33.3 Active/Remission status: currently active Depression Type: major depressive disorder Major depression episode severity: severe Major depression recurrence: recurrent Psychotic features: with psychotic features Schizoaffective disorder F25.9 Schizoaffective disorder type: unspecified Suicidal ideation R45.851 Schizophrenia, acute undifferentiated F20.3
[2019-10-25] MEDS: nicotine 2 mg Gum BUCCAL (10:47)
--- NOTE | 2019-10-25 12:13 | PC.RESP ---
Smoking Cessation information and a schedule of classes to patient.
[2019-10-25 14:00] VITALS: BP 108/66; PULSE 76; RESP 20; TEMP 36.8; O2SAT 95
[2019-10-25] MEDS: hyDROXYzine 25 mg Capsule 50 MG PO ×2 (17:51→21:12)
--- NOTE | 2019-10-25 17:51 | PC.NURSE ---
Addendum entered by Shana Ortega LPN 10/25/19 18:43: MEDICATION EFFECTIVE. NO FURTHER C/O ANXIETY. PATIENT LYING IN ROOM RESTING. RESPIRATIONS EVEN AND UNLABORED. Original Note: PRN VISTARIL VISTARIL 50MG PO PER PATIENT C/O ANXIETY. WILL CONTINUE TO MONITOR FOR MEDICATION EFFECTIVENESS.
[2019-10-25] MEDS: paliperidone palmitate 156 mg Syringe IM (21:11)
[2019-10-25] MEDS: trazodone 50 mg Tablet PO (21:13)
[2019-10-25 21:49] VITALS: BP 100/66; PULSE 73; RESP 18; TEMP 37; O2SAT 93
[2019-10-26 06:00] VITALS: BP 114/74; PULSE 60; RESP 18; TEMP 36.9; O2SAT 95
[2019-10-26 14:00] VITALS: BP 114/74; PULSE 90; RESP 20; TEMP 36.5; O2SAT 96
--- NOTE | 2019-10-26 15:19 | PC.SOCIAL ---
Medicaid ride called, trip # [id number]. 3 hour window between 3:20pm-6:20pm If ride does not arrive timely may call [phone]
--- NOTE | 2019-10-26 15:21 | P.PN_ITS ---
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 At this point he has a plan B which involves going to a facility in [place] or [place], regroup and start things over. We discussed the risks benefits and alternatives of following through with this plan be and he understood and agreed to proceed as is documented in his note. We agreed that we would try to get a Medicaid ride for him today but we would have to see if that is actually possible and it may need to be tomorrow based on their ability. Mental Status Exam MSE Comments: This is a well-nourished, well-developed, white male, with adequate dress, grooming, and eye contact. No abnormal movements except for mild psychomotor retardation. Cooperative with exam in no acute distress. Speech was decreased rate and volume. Mood described as I,m OK; affect congruent. Thought process, organized. Thought content: patient denied any suicidal or homicidal ideation, there were no delusions reported, except for resolving paranoia. or noted, patient denied any auditory or visual hallucinations. Attention and concentration are intact. Memory appeared reliable. He is alert and oriented times three. Insight and judgment are fair. 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 Continue current medication, except gave Invega Sustenna injection 156 mg IM to the deltoid. Encourage individual, group, and milieu therapy. Q 15-minute checks for safety. Involuntary Hold Information 96 Hour Hold: 96 Hour Involuntary Admission: No 96 Hour Hold Ending Date: 0 09/17/19 96 Hour Hold Ending Time: 12:01 Attestations NPU Medical Necessity Statement*: Inpatient hospitalization is medically necessary and the clinically appropriate intervention at this time. We will administer medication and monitor for any need for changes. Likely length of stay 1-2 days. We will consider discharge tomorrow. Coding Level of Care Code Acute Staff Occupational Therapist for [facility]
[2019-10-26 15:24] VITALS: BP 114/74; PULSE 90; RESP 20; TEMP 36.5; O2SAT 96
[2019-10-26 15:27] VITALS: BP 114/74; PULSE 90; RESP 20; TEMP 36.5; O2SAT 96
[2019-10-26 21:16] VITALS: BP 101/73; PULSE 81; RESP 17; TEMP 37; O2SAT 94
--- NOTE | 2019-10-27 | PC.NURSE ---
at hs, pt was offered prn sleep and anxiety med, but refused.
[2019-10-27 06:00] VITALS: BP 101/66; PULSE 68; RESP 17; TEMP 36.6; O2SAT 95
--- NOTE | 2019-10-27 08:45 | PM.NDC ---
Diagnoses at Discharge Discharge Diagnosis (1) Depression: Status: Acute Qualifiers: Active/Remission status: currently active Depression Type: major depressive disorder Major depression episode severity: severe Major depression recurrence: recurrent Psychotic features: with psychotic features Qualified Code(s): F33.3 - Major depressive disorder, recurrent, severe with psychotic symptoms (2) Schizoaffective disorder: Status: Acute Qualifiers: Schizoaffective disorder type: unspecified Qualified Code(s): F25.9 - Schizoaffective disorder, unspecified (3) Suicidal ideation: Status: Acute (4) Schizophrenia, acute undifferentiated: Status: Acute Problem details: Patient continues to struggle with auditory hallucinations though there is no command nature to the hallucinations and his reality testing remains intact. Reason for Visit Reason for Visit: SI Brief History: History of Present Illness Darin Zhang is a 39 year old male who presents today reporting that he was doing really well after his discharge approximately five weeks ago. He has a long history of inpatient hospitalizations and had been admitted, got placed on his medication, including Invega Sustenna injection. Unfortunately, he missed his appointment earlier this month that would have gotten him his next injection, so he did not get the injection. He was at a [employer] school and doing quite well, but each day with the absence of the medication in his system, he started acting more strangely which led to them inquiring about whether he had mental health issues, and he had to reveal that he missed his injection. They recommended he come here and now he is focused on the possibility of whether or not he will get to go back, as long as he gets his injection managed. We reviewed the note from his last admission, and he verified that there have been no substantive changes and it represents his history appropriately. An excerpt of that has been included below. We agreed to give him his injection and then work with him along with the social work team to see what options are available of getting him back into school, as that was going to be a wonderful opportunity for him if he can complete it. Per his 09/13/2019 [facility] eval: Chief complaint: I am having problems with hallucinations. I did really well when I was on medication. I want to be on the shot. History of present illness:Darin Zhang is a 38 year old male who presented to the emergency room requesting admission so that he could be restarted on medications that had previously been effective. 2 months ago, he went into a residential program that was [facility]-based and was told that he could stop his pharmaceuticals and rely solely on the strength of his face. He now states that the medications are necessary and effective. He had been taking Abilify and Prozac. However, he reports that he was on inVega for 3 months last year and the inVega seem to help better than the combination of those 2 medications as. He reports that historically, his diagnosis was schizoaffective disorder?bipolar type. He is not a very good historian regarding progression of those symptoms over time. He has been hospitalized over 40 times with the first being at 12 years of age. However he is very clear that he wants to be on injectable medication because he cannot remember to take his pills. He is also very clear that the in Choi was the most effective medication in reducing his auditory hallucinations. He acknowledges that risperidone is on his allergy list and says that with both risperidone and Haldol he had dystonia. However he is adamant that he never had a similar side effect with the Invega. Currently he is having auditory hallucinations but they are not of a command nature. They impaired his ability to think clearly and reduce his focus of attention. He denies suicidal or homicidal ideation. He reports no other symptoms and has no other requests. Laboratory Tests 09/12/19 09/12/19 20:50 20:58 Urine Opiates Screen Negative Ur Barbiturates Screen Negative Ur Phencyclidine Scrn Negative Ur Amphetamines Screen Negative U Benzodiazepines Scrn Negative Urine Cocaine Screen Negative U Marijuana (THC) Screen Negative Ethyl Alcohol < 10 ER physician note:HPI Narrative: 38-year-old male who states he has had suicidal ideations over the last day. He states he is also had auditory hallucinations for 3 days. He states he used to be on Prozac Abilify and has not been taken. He states he has a plan to cut his wrist to kill himself. Patient is here wanting to get help. Mental health history: Social history: The patient grew up in [place]. He currently has a fianc? in [place]. However she is not able to come and get him here in the surgery. He dropped out of school in the 10th grade. However he did get his GED. He is originally from [facility]. 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 His father currently lives in [place]. He has 2 brothers in [place]. He has never been and has no children. Legal history: He is currently on parole for resisting arrest, assaulting an officer, felonious restraint, possession of a controlled substance, and resisting/interfering with arrest for a felony. These all occurred during one incident in August 2015. He received a 4-year sentence in the [employer]. It is unclear how long he served. Past medical history: Allergies: Risperidone and haloperidol both cause dystonic reactions by patient report. These are not confirmed. Medications: None Medical: The patient has no chronic medical problems. However in the week prior to admission, he did have a deep puncture wound from a rusted barbed wire fence. There are no signs of infection. However he cannot remember his last tetanus shot. Hospital Course Hospital Course Darin presented to the emergency room endorsing struggling with symptoms from his schizophrenia and psychosis, after missing his injection, a week to two weeks ago. He had gotten in a [employer] school and was doing really well, and when his injection was missed he started displaying symptoms that raised concerns, and they advised him that he needed to get his mental health managed or he would not be able to be back in the class. He was admitted to the neuropsychiatric unit for definitive treatment of those issues. On the unit, he did receive his medication and, ultimately, the injection reinstated. He had a positive response to that. However, unfortunately, the [employer] school would not take him back and reported to him that he could not be in the class with schizophrenia. He turned his attention to an alternative circumstance, working with the social work team to accomplish that. During the hospitalization, the patient had routine laboratory studies which were within normal limits, except for a few outliers. Additionally, he had a general medical evaluation which was within normal limits and revealed no new acute processes. Discharge Summary At the time of discharge the patient denied all lethality, was absent psychosis, and mood and anxiety were well managed. The patient endorsed a plan to avoid all drugs of abuse and to follow-up with outpatient services, as recommended. He was evaluated and deemed to be absent credible lethality, and had achieved the maximum benefit from an inpatient hospitalization, and so he was discharged. Involuntary Hold Information 96 Hour Hold: 96 Hour Involuntary Admission: No 96 Hour Hold Ending Date: 09/17/19 96 Hour Hold Ending Time: 12:01 Mental Status Exam MSE Comments: This is a well-nourished, well-developed, white male, with adequate dress, grooming, and eye contact. No abnormal movements, except for improving psychomotor retardation. Cooperative with exam in no acute distress. Speech was decreased but more normal rate and volume. Mood described as much better; affect congruent. Thought process, organized. Thought content: patient denied any suicidal or homicidal ideation, there were no delusions reported or noted, patient denied any auditory or visual hallucinations. Attention, concentration, and memory appeared intact but none were formally tested. He is alert and oriented times three. Insight and judgment are fair and improving. Discharge Data Vitals: Last Vital Signs Temp 97.8 F 10/27/19 06:00 Pulse 68 10/27/19 06:00 Resp 17 10/27/19 06:00 BP 101/66 10/27/19 06:00 Pulse Ox 95 10/27/19 06:00 Discharge Plan Discharge Patient Disposition: Home, Self-Care Condition: Fair Prescriptions: New trazodone 50 mg Tablet 50 mg PO BEDTIME PRN (Reason: Sleep) 30 Days Qty: 30 RF: 1 Invega Sustenna 156 mg/mL syringe 156 mg IM Q30D Qty: 1 RF: 2 Continued No Known Home Medications RF: 0 Discharge Orders: Discharge Order (Routine); Ordered 10/27/19 Ordered By: Genaro Melgoza Referrals: Khushboo Gill [Therapist] - 11/22/19 2:45 pm (Therapy) Discharge Diet: Regular Discharge Activity: Resume usual activity Patient Instructions: Trazodone (By mouth), Paliperidone (Injection) Activity Restrictions/Additional Instructions: Next Invega Sustenna Injection due 11/24/19 You will be going to [facility]. Address: [address], [place] [address]. Three wholesome meals daily for men who spend the night at the [facility] and attend chapel service ?Basic medical care provided by on-site nurse and [facility], they should be able to help coordinate you getting your next injection. ?Showers, personal-hygiene items and suitable clothing ?Optional case management to connect men with social work coordinator and resources for housing and employment. (Those who choose not to take part in case management must leave the [facility] for a 30-, 60- and 90- day period between each consecutive shelters stay of 30 days.) Another option in [place]: if you need emergency assisted, please call [phone]. If you need assistance with housing, please visit our [facility] at [address] between 10 a.m. and 12:30 p.m. Friday-Friday. For other questions, call [phone]. Discharge Date/Time: 10/27/19 08:56 Discharge Attestations NPU Time Spent in Discharge Care*: less than 30 min Specific Discharge Activities: Specific discharge activities: educating patient, discussing with patient case coordinator/social workers/dc planners, documenting/other paperwork and evaluating patient/reviewing data Coding Level of Care Code Acute Viticulturist for Luz Maria Fwd Diagnoses Depression F33.3 Active/Remission status: currently active Depression Type: major depressive disorder Major depression episode severity: severe Major depression recurrence: recurrent Psychotic features: with psychotic features Schizoaffective disorder F25.9 Schizoaffective disorder type: unspecified Suicidal ideation R45.851 Schizophrenia, acute undifferentiated F20.3
== END 2019-10-27 08:56 | disposition home or self-care (01) | DRG 885 ==
LOC: ER 10:58 → NP 11:59
PROVIDERS: Family Medicine; Admitting Provider Psychiatry & Neurology Psychiatry; Visit Provider Psychiatry & Neurology Psychiatry
DX: F20.3 Undifferentiated schizophrenia (principal); R45.851 Suicidal ideations; F17.210 Nicotine dependence, cigarettes, uncomplicated
CPT/HCPCS: 12345; 36415; 80053; 80306; 80307; 84443; 85025; 93005; 96372; 99284

== ENCOUNTER 2019-10-24 09:09 | Emergency (ER) | payer MEDICAID, SELFPAY | END 2019-10-24 12:20 | disposition admitted as inpatient to this hospital (09) | LOC: ER 10-28 00:34 | PROVIDERS: Emergency Provider Family Medicine | DX: R45.851 Suicidal ideations (principal); F33.3 Major depressive disorder, recurrent, severe with psychotic symptoms; F25.9 Schizoaffective disorder, unspecified; F17.210 Nicotine dependence, cigarettes, uncomplicated | CPT/HCPCS: 12345; 36415; 80053; 80306; 80307; 84443; 85025; 93005; 99284; 99285 ==